=== PATIENT | female | born 1990 | race African-American/Black ===

== ENCOUNTER 2016-11-11 17:55 | Emergency (ER) | payer MEDICAID, OTHER ==
[~2016-11-11] VITALS: Ht 162.6 cm; Wt 81.0 kg
[~2016-11-11 17:55] MED LIST: CEPH500C3 PO; CIPR500T4 PO; DOXY10TA PO; MACR100C2 PO; MMW SS; PENI500T PO; PRED20 PO; PREN0.01 PO; TIOC1OIN3
[2016-11-11 17:57] VITALS: BP 168/84; PULSE 78; RESP 17; TEMP 98.2; O2SAT 99
--- NOTE | 2016-11-11 18:08 | PD ---
Physical Exam Date Seen by Provider: Nov 11, 2016 Time Seen by Provider: 18:08 Narrative 26 year old female presents to the emergency department for evaluation of abscess under right arm for 2 days. No fevers. Patient awaiting bed placement. Data Data Last Documented VS Vital Signs Date Time Temp Pulse Resp B/P Pulse Ox O2 Delivery O2 Flow Rate FiO2 11/11/16 17:57 98.2 78 17 168/84 99 MDM Supervised Visit with KASSY: Lorri Bartlett Nov 11, 2016 18:08
--- NOTE | 2016-11-11 18:12 | PD ---
HPI . right axilla swelling Chief Complaint: Skin Problem Time Seen by Provider: 18:11 Travel History International Travel<30 days: No Contact w/Intl Traveler<30days: No Traveled to known affect area: No History of Present Illness HPI 26-year-old female here with complaints of right axillary swelling for 2 days. Patient said out of the blue her right axilla just started swelling is extremely painful. She denies any hx of hidradenitis suppurative. She denies any fever or chills. It is extremely painful 10/10. PFSH Past Medical History Diminished Hearing: No Hypertension: Yes (preg induced htn) Immunizations Current: Yes ?: Not LMP: 10/21/16 : 5 Para: 2 Miscarriage: 3 Past Surgical History Section: Yes (x2) Social History Alcohol Use: No Tobacco Use: No Substance Use: No Allergies-Medications (Allergen,Severity, Reaction): Coded Allergies: No Known Allergies (Verified , 11/11/16) Reported Meds & Prescriptions Reported Meds & Active Scripts Active Macrobid (Nitrofurantoin Monoh/Nitrofur Macro) 100 Mg Cap 100 Mg PO BID 5 Days Keflex (Cephalexin Monohydrate) 500 Mg Cap 500 Mg PO BID 7 Days Vitamins 1 Tab PO DAILY Diclegis1 Tab 1 Tab Tab 2 Tab PO HS 7 Days Keflex (Cephalexin Monohydrate) 500 Mg Cap 500 Mg PO QID 7 Days Mmw 10 Ml SS Q4HR PRN 7 Days MAGIC MOUTHWASH CONTAINS 1/3 VISCOUS LIDOCAINE,1/3 MAALOX, AND 1/3 BENADRYL. Deltasone 20 Mg Tab (Prednisone) 20 Mg Tab 20 Mg PO BID 5 Days Pen Vk (Penicillin V Potassium) 500 Mg Tab 500 Mg PO TID 10 Days Cipro (Ciprofloxacin HCl) 500 Mg Tab 500 Mg PO BID 7 Days Reported Monistat 1-Day (Tioconazole Vaginal) 6.5 % Oin Review of Systems General / Constitutional: No: Fever Eyes: No: Visual changes HENT: No: Headaches Cardiovascular: No: Chest Pain or Discomfort Respiratory: No: Shortness of Breath Gastrointestinal: No: Abdominal Pain Genitourinary: No: Dysuria Musculoskeletal: No: Pain Skin: Positive Other (right axillary swelling), No Rash Neurologic: No: Weakness Psychiatric: No: Depression Endocrine: No: Polydipsia Hematologic/Lymphatic: No: Easy Bruising Physical Exam Narrative GENERAL: AAO x 3, no acute distress, Well-nourished, well-developed patient. SKIN: Warm and dry. No visible rashes or bruising. severe axillary swelling extending anterior to posterior axilla, there is a large induration (oblong) in her axilla, the area is extremely tender to touch, warm, almost engulfs shoulder HEAD: Normocephalic and atraumatic. EYES: No scleral icterus. No injection or drainage. ENT: No nasal drainage noted. Mucous membranes pink. Airway patent. NECK: Supple, trachea midline. No JVD. CARDIOVASCULAR: Regular rate and rhythm without murmurs, gallops, or rubs. RESPIRATORY: Breath sounds equal bilaterally. No accessory muscle use. No rhonchi or rales. GASTROINTESTINAL: Abdomen soft, non-tender, nondistended. EXTREMITIES: No cyanosis or edema. decreased ROM of RUE due to pain in axilla BACK: Nontender without obvious deformity. No CVA tenderness. PSYCH: AAO x 3, normal affect. Data Data Last Documented VS Vital Signs Date Time Temp Pulse Resp B/P Pulse Ox O2 Delivery O2 Flow Rate FiO2 11/11/16 17:57 98.2 78 17 168/84 99 MDM Medical Decision Making Medical Screen Exam Complete: Yes Emergency Medical Condition: Yes Medical Record Reviewed: Yes Differential Diagnosis abscess, hidradenitis suppurative, folliculitis Narrative Course 26-year-old female here with complaints of right axillary swelling for 2 days. Patient said out of the blue her right axilla just started swelling is extremely painful. She denies any hx of hidradenitis suppurative. She denies any fever or chills. It is extremely painful 10/10. Patient was seen and examined. She needs to be transferred to a medical bed. She will need an ultrasound. This may need surgical intervention and IV abx. She has her 3 children with her the smallest is 5 months old. She tells me she does not have anyone to pick them up. This will definitely make her care a little more difficult. She asked me for approximate time that she will be in the emergency department and I advised her that I could not give her a definitive answer. I did explain to her that we will be transferring her to a medical bed for further workup and treatment. That provider will determine her disposition. Condition: Stable Brinda Araya Nov 11, 2016 18:12
[2016-11-11] MEDS ORDERED: HYDROmorphone HCL PF 1 MG/ML VIAL IV PUSH ONE (22:00)
[2016-11-11 22:59] LABS: AUTOMATED NEUTROPHIL # 9.7 TH/MM3 (1.8-7.7); BASOPHIL # 0.1 TH/MM3 (0-0.2); BASOPHIL % 0.5 % (0.0-2.0); EOSINOPHIL % 0.2 % (0.0-4.0); HEMO FLAGS DIFF FINAL; LYMPHOCYTE # 3.6 TH/MM3 (1.0-4.8); MEAN CELL VOLUME 83.1 FL (80.0-100.0); MEAN CORPUSCULAR HEMOGLOBIN 27.6 PG (27.0-34.0); MEAN CORPUSCULAR HGB CONC 33.2 % (32.0-36.0); MONO % 7.1 % (0.0-8.0); NEUT % 67.2 % (16.0-70.0); PLATELET COUNT 302 TH/MM3 (150-450); RED BLOOD COUNT 3.73 MIL/MM3 (4.00-5.30); RED CELL DISTRIBUTION WIDTH 14.5 % (11.6-17.2); WHITE BLOOD COUNT 14.4 TH/MM3 (4.0-11.0)
[2016-11-11 23:20] LABS: ALT (GPT) 47 U/L (10-53); ANION GAP 7 MEQ/L (5-15); AST (GOT) 22 U/L (15-37); BICARBONATE 26.9 MEQ/L (21.0-32.0); BLOOD UREA NITROGEN 7 MG/DL (7-18); CHLORIDE 106 MEQ/L (98-107); GLOMERULAR FILTRATION RATE 130 ML/MIN (>89); SODIUM (NA) 140 MEQ/L (136-145)
[2016-11-11 23:22] LABS: ALKALINE PHOSPHATASE 93 U/L (45-117); TOTAL BILIRUBIN ADULT 0.3 MG/DL (0.2-1.0)
[2016-11-11] MEDS ORDERED: POTASSIUM CHLORIDE 25 MEQ EFFERVESCENT TAB PO ONE (23:30)
[2016-11-11] MEDS ORDERED: CLINDAMYCIN INJ 600 MG in SODIUM CHLORIDE 0.9% INJ 100 ML IV ONE (23:45)
--- NOTE | 2016-11-12 00:10 | RADRPT ---
EXAM DATE/TIME: 11/11/2016 22:50 [facility] COMPARISON: No previous studies available for comparison. INDICATIONS : Right axillary pain and swelling. MEDICAL HISTORY : . induced hypertension. SURGICAL HISTORY : section. ENCOUNTER: Initial ACUITY: 2 days PAIN SCORE: 10/10 LOCATION: Right axilla. AREA EVALUATED: Right axilla. FINDINGS: There is a heterogeneous mass in the right axillary region measuring 6.5 x 3.1 x 2.0 cm. There does a ppear to be increased flow around this mass especially superficially. This does demonstrate some incr eased through-transmission. CONCLUSION: 6 cm heterogeneous superficial mass. This mass is nonspecific. A complex abscess could have this appe arance. A very prominent skin lesion could conceivably have this appearance given the superficial loc ation of the mass. Dejuan Mcneil MD on November 12, 2016 at 0:04 Board Certified Radiologist. This report was verified electronically.
[2016-11-12] MEDS ORDERED: ONDANSETRON HCL 4 MG/2 ML VIAL IV ONE (00:15)
[2016-11-12] MEDS ORDERED: LIDOCAINE HCL 1% PF 30 ML VIAL INFIL ONE (00:15)
[2016-11-12] MEDS ORDERED: KETAMINE HCL 500 MG/5 ML VIAL IV PUSH ONE (00:15)
[2016-11-12 00:36] VITALS: O2SAT 100
[2016-11-12] MEDS ORDERED: HYDROmorphone HCL PF 1 MG/ML VIAL IV PUSH ONE (01:15)
[2016-11-12] MEDS ORDERED: SODIUM CHLOR 0.9% 1000 ML INJ 1,000 ML IV ONE (01:45)
[2016-11-12] MEDS ORDERED: BACT800T5 PO (03:16)
[2016-11-12] MEDS ORDERED: HYDR-3533 PO (03:16)
[2016-11-12] MEDS ORDERED: CEPH-460 PO (03:16)
--- NOTE | 2016-11-12 03:16 | PD ---
Data Data Last Documented VS Vital Signs Date Time Temp Pulse Resp B/P Pulse Ox O2 Delivery O2 Flow Rate FiO2 11/12/16 00:36 100 Nasal Cannula 3.00 11/11/16 17:57 98.2 78 17 168/84 Orders Complete Blood Count With Diff (11/11/16 21:51) Comprehensive Metabolic Panel (11/11/16 21:51) ^ Insert Iv (11/11/16 21:51) Us Arm Soft Tissue (11/11/16 ) Hydromorphone Pf Inj (Dilaudid Pf Inj) (11/11/16 22:00) Potassium Chloride Eff (K-Lyte Cl Eff) (11/11/16 23:30) Clindamycin Inj (Cleocin Inj) (11/11/16 23:45) Ketamine Inj (Ketalar Inj) (11/12/16 00:15) Lidocaine Pf 1% Inj (Xylocaine-Mpf 1% In (11/12/16 00:15) Ondansetron Inj (Zofran Inj) (11/12/16 00:15) Hydromorphone Pf Inj (Dilaudid Pf Inj) (11/12/16 01:15) Wound Culture And Gram Stain (11/12/16 01:16) Lactic Acid (11/12/16 01:31) Sodium Chlor 0.9% 1000 Ml Inj (Ns 1000 M (11/12/16 01:45) Labs Laboratory Tests Test 11/11/16 11/12/16 22:48 02:03 White Blood Count 14.4 TH/MM3 Red Blood Count 3.73 MIL/MM3 Hemoglobin 10.3 GM/DL Hematocrit 31.0 % Mean Corpuscular Volume 83.1 FL Mean Corpuscular Hemoglobin 27.6 PG Mean Corpuscular Hemoglobin 33.2 % Concent Red Cell Distribution Width 14.5 % Platelet Count 302 TH/MM3 Mean Platelet Volume 8.2 FL Neutrophils (%) (Auto) 67.2 % Lymphocytes (%) (Auto) 25.0 % Monocytes (%) (Auto) 7.1 % Eosinophils (%) (Auto) 0.2 % Basophils (%) (Auto) 0.5 % Neutrophils # (Auto) 9.7 TH/MM3 Lymphocytes # (Auto) 3.6 TH/MM3 Monocytes # (Auto) 1.0 TH/MM3 Eosinophils # (Auto) 0.0 TH/MM3 Basophils # (Auto) 0.1 TH/MM3 CBC Comment DIFF FINAL Differential Comment Sodium Level 140 MEQ/L Potassium Level 3.0 MEQ/L Chloride Level 106 MEQ/L Carbon Dioxide Level 26.9 MEQ/L Anion Gap 7 MEQ/L Blood Urea Nitrogen 7 MG/DL Creatinine 0.66 MG/DL Estimat Glomerular Filtration 130 ML/MIN Rate Random Glucose 85 MG/DL Calcium Level 8.3 MG/DL Total Bilirubin 0.3 MG/DL Aspartate Amino Transf 22 U/L (AST/SGOT) Alanine Aminotransferase 47 U/L (ALT/SGPT) Alkaline Phosphatase 93 U/L Total Protein 7.5 GM/DL Albumin 3.4 GM/DL Lactic Acid Level 0.6 mmol/L MDM Supervised Visit with KASSY: Yes Narrative Course The history, exam, and medical decision-making in the associated midlevel provider note were completed with my assistance. I reviewed and agree with the findings presented. I attest that I had a [id number] encounter with the patient on the same day, and personally performed and documented my assessment and findings in the medical record. *My assessment and Findings: This is a 26-year-old female who presents to the emergency department with swelling under her right axilla. On ultrasound she has a 6 x 1 cm complex mass which I suspect is an abscess based on her clinical exam. I performed an incision and drainage under ketamine sedation. Patient tolerated the procedure well. Packing was placed. She was given a dose of IV clindamycin. I advised the patient to return to the emergency department in 2 days for reevaluation and packing removal. Procedures Procedure Narrative Incision and drainage: 5 cc of 1% lidocaine were injected into the right axilla. An 11 blade scalpel was used to incise right axillary abscess. Copious amount of yellow and green purulent material was drained. Loculations were opened. Iodoform gauze was placed in the abscess After the risks and benefits were discussed the following procedure was performed: MODERATE SEDATION: The patient was placed on a security monitor and pulse oximetry. An ambu bag and suction was immediately available at bedside. The patient was monitored by the nurse. Oxygen saturation, heart rate and blood pressure were monitored. Procedural sedation was achieved using 80 milligrams IV ketamine . The patient was observed until awake and alert. Procedural Sedation time in attendance was 30 minutes. Diagnosis Primary Impression: Abscess Patient Instructions: General Instructions Additional Instruction: If you develop fever, increasing redness, warmth, or spreading of your infection , or severe pain return to the emergency department immediately as you may require antibiotics through your IV. Complete your course of antibiotics as prescribed. Return to the emergency department in 2 days to have your wound checked and to have your packing removed. Med/Other Pt SpecificInfo: Prescription(s) given Scripts Hydrocodone-Acetaminophen (Lortab)5-325 Mg Tab1 Tab PO Q6H PRN (PAIN) #10 TAB Ref 0 Prov:Stephanie Carrasco MD 11/12/16 Sulfamethoxazole-Trimethoprim (Bactrim DS)800-160 Mg Tab1 Tab PO BID #20 TAB Ref 0 Prov:Stephanie Carrasco MD 11/12/16 Cephalexin (Keflex)500 Mg [id number] Mg PO Q12H 10 Days Ref 0 Prov:Stephanie Carrasco MD 11/12/16 Disposition: 01 DISCHARGE HOME Condition: Stable Stephanie Carrasco MD Nov 12, 2016 03:16
[2016-11-12 04:00] VITALS: BP 125/74; PULSE 98; RESP 16; O2SAT 98
== END 2016-11-12 07:28 | disposition home or self-care (01) ==
LOC: NEPC 17:55
DX: L02.411 Cutaneous abscess of right axilla (principal); B96.89 Other specified bacterial agents as the cause of diseases classified elsewhere
CPT/HCPCS: 10061; 76882; 80053; 83605; 85025; 86403; 87070; 87185; 96361; 96365; 96375; 96376; 99152; 99153; 99284; J1170; J2405; J7030

== ENCOUNTER 2016-11-14 17:45 | Emergency (ER) | payer MEDICAID, OTHER ==
[~2016-11-14] VITALS: Ht 162.6 cm; Wt 84.0 kg
[~2016-11-14 17:45] MED LIST changes: +BACT800T5 PO; +CEPH-460 PO; -CEPH500C3 PO; -CIPR500T4 PO; -DOXY10TA PO; +HYDR-3533 PO; -MACR100C2 PO; -MMW SS; -PENI500T PO; -PRED20 PO; -PREN0.01 PO; -TIOC1OIN3
[2016-11-14 17:49] VITALS: BP 147/97; PULSE 80; RESP 12; TEMP 99.6
[2016-11-14 18:23] VITALS: TEMP 98.2; O2SAT 100
--- NOTE | 2016-11-14 18:27 | PD ---
HPI Chief Complaint: Skin Problem Time Seen by Provider: 18:27 Travel History International Travel<30 days: No Contact w/Intl Traveler<30days: No Traveled to known affect area: No History of Present Illness HPI 26-year-old female presents to the emergency department requesting packing removal from her right axilla. The packing was placed 3 days ago. She's been taking the antibiotics prescribed as directed. She denies fever, chills, nausea , vomiting. She is also requesting a prescription for Diflucan as the antibiotics she has been taking started giving her vaginal itching and start of a yeast infection; reports that this is a normal response with her taking antibiotics. No known allergies. No other modifying factors or associated signs and symptoms. PFSH Past Medical History Diminished Hearing: No Hypertension: Yes (preg induced htn) Immunizations Current: Yes ?: Not : 5 Para: 2 Miscarriage: 3 Past Surgical History Section: Yes (x3) Social History Alcohol Use: No Tobacco Use: No (never) Substance Use: No Allergies-Medications (Allergen,Severity, Reaction): Coded Allergies: No Known Allergies (Verified , 11/14/16) Reported Meds & Prescriptions Reported Meds & Active Scripts Active Diflucan (Fluconazole) 150 Mg Tab 150 Mg PO ONCE Ibuprofen 800 Mg Tab 800 Mg PO Q6HR PRN Bactrim DS (Sulfamethoxazole-Trimethoprim) 800-160 Mg Tab 1 Tab PO BID Keflex (Cephalexin) 500 Mg Cap 500 Mg PO Q12H 10 Days Review of Systems Except as stated in HPI: all other systems reviewed are Neg Physical Exam Narrative GENERAL: Well-nourished, well-developed -Emirati female patient, in no acute distress; afebrile, nontoxic-appearing SKIN: Warm and dry. Right axilla with dressing intact and iodoform packing intact; area with purulent drainage and mild erythema. HEAD: Atraumatic. Normocephalic. EYES: Pupils equal and round. No scleral icterus. No injection or drainage. ENT: Mucosa pink and moist. Airway patent. NECK: Trachea midline. CARDIOVASCULAR: Regular rate. RESPIRATORY: No accessory muscle use. GASTROINTESTINAL: Rounded. MUSCULOSKELETAL: No obvious deformities. No clubbing. No cyanosis. No edema. NEUROLOGICAL: Awake and alert. Oriented 3. No obvious cranial nerve deficits. Motor grossly within normal limits. Normal speech. PSYCHIATRIC: Appropriate mood and affect; insight and judgment normal. Data Data Last Documented VS Vital Signs Date Time Temp Pulse Resp B/P Pulse Ox O2 Delivery O2 Flow Rate FiO2 11/14/16 18:23 98.2 100 11/14/16 17:52 11/14/16 17:49 80 12 Room Air Orders Ibuprofen (Motrin) (11/14/16 18:30) MDM Medical Decision Making Medical Screen Exam Complete: Yes Emergency Medical Condition: Yes Medical Record Reviewed: Yes Differential Diagnosis Wound recheck, packing removal, medical clearance Narrative Course 26-year-old female with abscess to her right axilla needing packing removal. The abscess was incised and drained on November 11. Patient is afebrile and nontoxic-appearing. She denies fever, chills, nausea, vomiting. Packing removed and patient did not tolerate very well; it caused her a lot of pain. Ibuprofen ordered. I will prescribe Diflucan for complaint of onset of yeast infection secondary to antibiotics. Ibuprofen and Diflucan prescribed for home. Patient verbalizes understanding and agreement with treatment plan. Patient is medically cleared and stable for discharge. Discussed reasons to return to the emergency department. Instructed patient to follow up with primary care provider. Patient agrees with treatment plan. The patients vital signs are stable and the patient is stable for outpatient follow-up and treatment. Patient discharged home, stable and in no acute distress. Diagnosis Primary Impression: Encounter for abscess packing removal Referrals: Primary Care Physician Patient Instructions: Abscess (ED), Abscess Follow-up (ED), General Instructions Departure Forms: Tests/Procedures, Work Release Enter return to work date: Nov 16, 2016 Additional Instructions: Complete full course of antibiotics Warm compresses to the affected area Keep area clean and dry Ibuprofen or Tylenol as instructed and as needed for pain and inflammation Follow-up with primary care provider Return to emergency department immediately with worsening of symptoms Med/Other Pt SpecificInfo: Prescription(s) given Scripts Fluconazole (Diflucan)150 Mg [id number] Mg PO ONCE #1 TAB Ref 1 Prov:Loni Grey 11/14/16 Ibuprofen 800 Mg [id number] Mg PO Q6HR PRN (PAIN) #30 TAB Ref 0 Prov:Loni Grey 11/14/16 Disposition: 01 DISCHARGE HOME Condition: Stable Loni Grey Nov 14, 2016 18:27
[2016-11-14] MEDS ORDERED: IBUP800T23 PO (18:28)
[2016-11-14] MEDS ORDERED: IBUPROFEN 800 MG TAB PO ONE (18:30)
[2016-11-14] MEDS ORDERED: DIFL150T PO (18:32)
== END 2016-11-14 18:54 | disposition home or self-care (01) ==
LOC: NEPK 17:45
DX: Z48.00 Encounter for change or removal of nonsurgical wound dressing (principal); I10 Essential (primary) hypertension; Z79.899 Other long term (current) drug therapy
CPT/HCPCS: 99282

== ENCOUNTER 2017-03-28 17:16 | Emergency (ER) | payer MEDICAID ==
[~2017-03-28] VITALS: Ht 162.6 cm; Wt 83.5 kg
[~2017-03-28 17:16] MED LIST changes: +DIFL150T PO; -HYDR-3533 PO; +IBUP800T23 PO
[2017-03-28 17:17] VITALS: BP 149/87; PULSE 99; RESP 20; TEMP 99.3; O2SAT 100
--- NOTE | 2017-03-28 17:28 | PD ---
Physical Exam Date Seen by Provider: Mar 28, 2017 Time Seen by Provider: 17:26 Data Data Last Documented VS Vital Signs Date Time Temp Pulse Resp B/P (MAP) Pulse Ox O2 Delivery O2 Flow Rate FiO2 03/28/17 17:17 99.3 99 20 149/87 (107) 100 Room Air MDM Supervised Visit with KASSY: No Narrative Course 27 YO F with complaint of "throat and mouth swelling" x 2 days. Endorses poor dentition. + N, --V. --F/C. Vitals reviewed. Patient seen in triage, awaiting bed placement. Ileana Pritchard Mar 28, 2017 17:28
[2017-03-28] MEDS ORDERED: KETOROLAC TROMETHAMINE 60 MG/2 ML (IM) VIAL IM ONE (17:45)
[2017-03-28] MEDS ORDERED: IBUP800T23 PO (17:53)
[2017-03-28] MEDS ORDERED: MAGICPED SWISH-SPIT (17:53)
[2017-03-28] MEDS ORDERED: PERI0.126 SWISH-SPIT (17:53)
[2017-03-28] MEDS ORDERED: AMOX500C PO (17:53)
--- NOTE | 2017-03-28 17:54 | PD ---
HPI Chief Complaint: Facial Pain or Swelling Time Seen by Provider: 17:48 Travel History International Travel<30 days: No Contact w/Intl Traveler<30days: No Traveled to known affect area: No History of Present Illness HPI 27-year-old female presents to the emergency Department with complaint of gingival pain and swelling 1 month and onset of sore throat 3 days. Denies fever, vomiting. Denies lump in throat, difficulty swallowing, unusual drooling. Reports painful swallowing. Denies nasal congestion, ear pain, cough. Reports pain to anterior cervical lymph nodes. Describes it as a burning sensation in the back of her throat. Reports poor dentition. Says she' s been told by a dentist she needs multiple root canals. Denies drainage from gingiva. Denies facial swelling. Has been taking Tylenol for symptom management. Symptoms are mild in severity. Has no other medical complaints. No known allergies. No modifying factors or associated signs and symptoms. PFSH Past Medical History Diminished Hearing: No Hypertension: Yes (preg induced htn) Immunizations Current: Yes : 5 Para: 2 Miscarriage: 3 Past Surgical History Section: Yes (x3) Social History Alcohol Use: No Tobacco Use: No (never) Substance Use: No Allergies-Medications (Allergen,Severity, Reaction): Coded Allergies: No Known Allergies (Verified , 03/28/17) Reported Meds & Prescriptions Reported Meds & Active Scripts Active Review of Systems Except as stated in HPI: all other systems reviewed are Neg Physical Exam Narrative GENERAL: Well-nourished, well-developed female patient, in no acute distress SKIN: Warm and dry. No rash. HEAD: Atraumatic. Normocephalic. EYES: Pupils equal and round. No scleral icterus. No injection or drainage. ENT: Mucosa pink and dry. Pharynx with 2+ tonsils; with erythema and edema; without exudate. No Uvular edema. No uvular, palatal, or tonsillar deviation. Airway patent. Voice is hoarse. No signs of trismus. EARS: Bilateral pinnae and external canals appear within normal limits. Bilateral tympanic membranes without erythema, dullness or perforation.. MOUTH: Mucous membranes moist, no lesions, tongue appear normal. Partially edentulous. Existing teeth are tender on palpation. Poor dentition throughout. Gums appear edematous and are painful on palpation throughout. No obvious abscess noted. NECK: Trachea midline. Anterior cervical lymphadenopathy and tenderness. CARDIOVASCULAR: Regular rate. RESPIRATORY: No accessory muscle use. GASTROINTESTINAL: Rounded. MUSCULOSKELETAL: No obvious deformities. No clubbing. No cyanosis. No edema. NEUROLOGICAL: Awake and alert. Oriented 3. No obvious cranial nerve deficits. Motor grossly within normal limits. Normal speech. Moves all extremities. PSYCHIATRIC: Appropriate mood and affect; insight and judgment normal. Data Data Last Documented VS Vital Signs Date Time Temp Pulse Resp B/P (MAP) Pulse Ox O2 Delivery O2 Flow Rate FiO2 03/28/17 18:12 03/28/17 17:17 99.3 99 20 100 Room Air Orders Orders Ketorolac Inj (Toradol Inj) (03/28/17 17:45) Group A Rapid Strep Screen (03/28/17 17:43) Ondansetron Odt (Zofran Odt) (03/28/17 18:00) [facility] Medical Decision Making Medical Screen Exam Complete: Yes Emergency Medical Condition: Yes Medical Record Reviewed: Yes Differential Diagnosis Gingivitis, pain and swelling of gingiva, dentalgia, dental abscess, strep pharyngitis, viral pharyngitis, sore throat Narrative Course 27-year-old female with dental pain, pain of the gingiva and swelling of gingiva , and sore throat. Patient is afebrile and nontoxic-appearing. Denies open throat, difficulty swallowing, unusual drooling. No signs of any obvious dental abscesses on exam. No facial edema or erythema. Rapid strep ordered and pending. I'll discharge the patient prior to rapid strep resulting because I will treat the patient with amoxicillin secondary to gingiva complaints. Amoxicillin, Magic mouthwash, Peridex mouth rinse, ibuprofen prescribed for home. Instruct the patient to follow up with dentist. Instructed patient to follow up with primary care provider. Patient verbalizes understanding and agreement with treatment plan. Patient is medically cleared and stable for discharge. Discussed reasons to return to the emergency department. Patient agrees with treatment plan. The patients vital signs are stable and the patient is stable for outpatient follow-up and treatment. Patient discharged home, stable and in no acute distress. 03/29/2017 0730: I called the patient to inform her she was positive for strep throat. The first phone number was a wrong number. And the second phone number there was no answer and I was unable to leave a message. Diagnosis Primary Impression: Pharyngitis Qualified Codes: J02.9 - Acute pharyngitis, unspecified Additional Impressions: Dentalgia Pain of gingiva Swelling of gingiva Referrals: Dentist Primary Care Physician Patient Instructions: Dental Abscess (ED), Dental Caries (ED), General Instructions, Gingivitis (ED), Toothache (ED) Departure Forms: Tests/Procedures, Work Release Enter return to work date: Mar 30, 2017 Additional Instructions: Take Antibiotics as prescribed and complete full course of antibiotics Throw away and change your toothbrush 24 hours after starting antibiotics Get plenty of sleep/rest Rest your voice Drink plenty of fluids to prevent dehydration Use warm saltwater gargles to soothe throat pain Use an air humidifier/turn off ceiling fans Use throat lozenges as needed for sore throat Use ibuprofen or acetaminophen as needed to relieve pain and fever Follow-up with your primary care provider within 2-4 days Return immediately to the emergency department with worsening of symptoms Complete full course of antibiotics Ibuprofen or Tylenol as directed and as needed to reduce pain and inflammation Use Magic mouthwash rinse as directed and as needed to decrease pain Use Peridex as directed for oral hygiene Warm or cool compresses to the affected area Follow-up with dentist Follow-up with primary care provider Return to emergency department immediately with worsening of symptoms Med/Other Pt SpecificInfo: Prescription(s) given Disposition: 01 DISCHARGE HOME Condition: Stable Loni Grey Mar 28, 2017 17:54
[2017-03-28] MEDS ORDERED: ONDANSETRON ODT 4 MG TAB PO ONE (18:00)
== END 2017-03-28 18:14 | disposition home or self-care (01) ==
LOC: NEPK 17:16
DX: J02.9 Acute pharyngitis, unspecified (principal); K08.89 Other specified disorders of teeth and supporting structures
CPT/HCPCS: 87880; 96372; 99284; J1885

== ENCOUNTER 2017-07-14 18:52 | Emergency (ER) | payer MEDICAID ==
[~2017-07-14] VITALS: Ht 162.6 cm; Wt 82.0 kg
[2017-07-14 18:53] VITALS: BP 139/104; PULSE 114; RESP 20; TEMP 99.4; O2SAT 99
--- NOTE | 2017-07-14 20:56 | PD ---
HPI Chief Complaint: Complaint Time Seen by Provider: 20:36 Travel History International Travel<30 days: No Contact w/Intl Traveler<30days: No Traveled to known affect area: No History of Present Illness HPI 27-year-old female here for evaluation of possible UTI. The patient reports dysuria and increased urinary frequency for last 2 days. She has had similar symptoms in the past when she was diagnosed with UTI. She denies vaginal discharge. She is sexually active with one partner and believe she is in a monogamous relationship. No abdominal pain. No flank pain. No fevers or chills. PFSH Past Medical History Medical History: Denies Significant Hx Diminished Hearing: No Hypertension: Yes (preg induced htn) Immunizations Current: Yes Tetanus Vaccination: Unknown Influenza Vaccination: No ?: Not LMP: 06/19/17 : 5 Para: 2 Miscarriage: 3 Tubal Ligation: Yes Past Surgical History Section: Yes (x3) Social History Alcohol Use: No Tobacco Use: No (never) Substance Use: No Allergies-Medications (Allergen,Severity, Reaction): Coded Allergies: No Known Allergies (Verified , 03/28/17) Reported Meds & Prescriptions Reported Meds & Active Scripts Active Pyridium (Phenazopyridine HCl) 100 Mg Tab 100 Mg PO Q8H PRN 3 Days Bactrim DS (Sulfamethoxazole-Trimethoprim) 800-160 Mg Tab 1 Tab PO BID Review of Systems Except as stated in HPI: all other systems reviewed are Neg Physical Exam Narrative GENERAL: Well-developed, well-nourished, comfortable, no apparent distress. SKIN: Focused skin assessment warm/dry. No rash. HEAD: Atraumatic. Normocephalic. EYES: Pupils equal and round. No scleral icterus. No injection or drainage. ENT: Mucous membranes pink and moist. NECK: Trachea midline. No JVD. CARDIOVASCULAR: Regular rate and rhythm. No murmur appreciated. RESPIRATORY: No accessory muscle use. Clear to auscultation. Breath sounds equal bilaterally. GASTROINTESTINAL: Abdomen soft, non-tender, nondistended. MUSCULOSKELETAL: No obvious deformities. No clubbing. No cyanosis. No edema. No CVA tenderness. NEUROLOGICAL: Awake and alert. No obvious cranial nerve deficits. Motor grossly within normal limits. Normal speech. PSYCHIATRIC: Appropriate mood and affect; insight and judgment normal. Data Data Last Documented VS Vital Signs Date Time Temp Pulse Resp B/P (MAP) Pulse Ox O2 Delivery O2 Flow Rate FiO2 07/14/17 21:10 90 16 99 Room Air 07/14/17 18:53 99.4 Orders Orders Urinalysis - C+S If Indicated (07/14/17 19:59) Ed Urine Pregnancytest Poc (07/14/17 20:10) Urine Culture (07/14/17 20:06) Sulfamet-Trimeth Ds 800-160 Mg (Bactrim (07/14/17 21:15) Phenazopyridine (Pyridium) (07/14/17 21:15) Labs Laboratory Tests Test 07/14/17 20:06 Urine Color YELLOW Urine Turbidity TURBID Urine pH 6.0 Urine Specific Robbins 1.020 Urine Protein 100 mg/dL Urine Glucose (UA) NEG mg/dL Urine Ketones NEG mg/dL Urine Occult Blood SMALL Urine Nitrite POS Urine Bilirubin NEG Urine Urobilinogen LESS THAN 2.0 MG/DL Urine Leukocyte Esterase LARGE Urine RBC /hpf Urine WBC 134 /hpf Urine Squamous Epithelial Cells 31 /hpf Urine Amorphous Sediment OCC Urine Bacteria MANY /hpf Urine Mucus FEW /lpf Microscopic Urinalysis Comment CULTURE INDICATED MDM Medical Decision Making Medical Screen Exam Complete: Yes Emergency Medical Condition: Yes Medical Record Reviewed: Yes Differential Diagnosis UTI, cystitis, acute surgical/intra-abdominal process unlikely Narrative Course Initial vital signs showed a heart rate of 114 which improved to 90 without any intervention, oral temp of 99.4F, blood pressure 139/104. UA is suggestive of UTI. Abdominal exam is benign. I did not believe that there is an acute intra- abdominal/surgical process to warrant imaging at this time. Patient has classical symptoms of UTI which she has had several times in the past. Plan is to start her on Bactrim and have her follow-up with a primary care physician this week. I will also given the name of the [facility] [place] to follow- up with his well. She was advised on when to return to the emergency department. She verbalizes understanding and agreement with plan. Diagnosis Primary Impression: UTI (urinary tract infection) Qualified Codes: N30.01 - Acute cystitis with hematuria Referrals: [facility] 3 days Primary Care Physician 3 days Additional Instructions: Follow-up with a primary care physician this week. Take antibiotic as prescribed. Return to the emergency department for worsening symptoms or any other concerns. Scripts Phenazopyridine (Pyridium) 100 Mg Tab 100 MG PO Q8H Y for DYSURIA for 3 Days, #9 TAB 0 Refills Prov: Ankit Castillo MD 07/14/17 Sulfamethoxazole-Trimethoprim (Bactrim DS) 800-160 Mg Tab 1 TAB PO BID for Infection, #6 TAB 0 Refills Prov: Ankit Castillo MD 07/14/17 Disposition: 01 DISCHARGE HOME Condition: Stable Ankit Castillo MD Jul 14, 2017 20:55
[2017-07-14 20:59] LABS: BACTERIA, URINE MANY /hpf; BLOOD, URINE SMALL (NEG); COMMENT (UR) CULTURE INDICATED; CULTURE IF INDICATED CULTURE INDICATED; GLUCOSE,URINE NEG (NEG); KETONE, URINE NEG (NEG); MUCUS URINE FEW /lpf (OCC); NITRITE,URINE POS (NEG); SQUAMOUS EPITHELIAL CELL URINE 31 /hpf (0-5); URINE COLOR YELLOW (YELLW/STRAW)
[2017-07-14 21:10] VITALS: PULSE 90; RESP 16; O2SAT 99
[2017-07-14] MEDS ORDERED: PHENAZOPYRIDINE HCL 200 MG TAB PO ONE (21:15)
[2017-07-14] MEDS ORDERED: SULFAMETHOXAZOLE-TRIMETHOPRIM DS 800-160 MG TAB PO ONE (21:15)
[2017-07-14] MEDS ORDERED: PHEN0.4T PO (21:21)
[2017-07-14] MEDS ORDERED: BACT800T5 PO (21:21)
== END 2017-07-14 21:39 | disposition home or self-care (01) ==
LOC: NEPD 18:52
DX: N39.0 Urinary tract infection, site not specified (principal); B96.20 Unspecified Escherichia coli [E. coli] as the cause of diseases classified elsewhere
CPT/HCPCS: 81001; 84703; 87077; 87086; 87186; 99284